=== PATIENT | female | born 1985 | race African-American/Black ===

== ENCOUNTER 2018-06-19 19:19 | Emergency (ER) | payer OTHER ==
[~2018-06-19] VITALS: Ht 157.5 cm; Wt 69.4 kg
[2018-06-19 20:09] LABS: BASO % 0 % (0-3); EOS % 0 % (0-3); HEMATOCRIT 38.5 % (36.0-47.0); HEMOGLOBIN 12.5 g/dL (12.0-15.5); LYMPH # 2.1 x10^3/uL (1.0-4.8); LYMPH % 26 % (24-48); MEAN CORPUSCULAR HEMOGLOBIN 29 pg (25-35); MEAN CORPUSCULAR HGB CONC 33 g/dL (31-37); MEAN CORPUSCULAR VOLUME 89 fL (79-100); MONO # 0.5 x10^3/uL (0.0-1.1); MONO % 7 % (0-9); NEUT # 5.3 x10^3uL (1.8-7.7); NEUT % 67 % (31-73); PLATELET COUNT 179 x10^3/uL (140-400); WHITE BLOOD COUNT 7.9 x10^3/uL (4.0-11.0)
[2018-06-19 20:11] LABS: BILIRUBIN,URINE NEGATIVE (NEG); CLARITY,URINE CLEAR; COLOR,URINE YELLOW; NITRITE,URINE NEGATIVE (NEG); PROTEIN,URINE NEGATIVE (NEG-TRACE); UROBILINOGEN,URINE 0.2 mg/dL (0.2 mg/dL)
[2018-06-19 20:20] LABS: SQUAMOUS EPITHELIAL CELL,UR FEW /LPF
[2018-06-19 20:21] LABS: BACTERIA,URINE 0 /HPF (0-FEW); RBC,URINE 20-40 /HPF (0-2); WBC,URINE 0 /HPF (0-4)
[2018-06-19 20:23] LABS: CALCIUM 8.5 mg/dL (8.5-10.1); CREATININE 0.8 mg/dL (0.6-1.0); GFR 101.2; POTASSIUM 3.8 mmol/L (3.5-5.1)
[2018-06-19 20:30] LABS: ALBUMIN 3.5 g/dL (3.4-5.0); ALBUMIN/GLOBULIN RATIO 1.1 (1.0-1.7); TOTAL BILIRUBIN 0.8 mg/dL (0.2-1.0); TOTAL PROTEIN 6.8 g/dL (6.4-8.2)
--- NOTE | 2018-06-19 20:30 | PHYS DOC ---
Past Medical History Past Medical History: No Pertinent History Past Surgical History: Other Additional Past Surgical Histo: ORAL SX, CYST REMOVED FROM ARM Alcohol Use: None Drug Use: None Adult General Chief Complaint Chief Complaint: VAGINAL BLEEDING HPI HPI Patient is a 32 year old female 3 para 2 currently 6 weeks who presents to the ED today complaining of vaginal bleeding that began yesterday. She states yesterday she was spotting, she states she was seen at [facility], she states she was informed she a the has an early IUP or a possible miscarriage. She states today the bleeding has increased, she states she has used four regular feminine pads since 4 PM today it is 8 pm right now. Denies any abdominal pain, denies any nausea vomiting. Denies any fever. She states she has no [employer] FINANCE [employer]. Review of Systems Review of Systems Constitutional: Denies fever or chills [] Eyes: Denies change in visual acuity, redness, or eye pain [] HENT: Denies nasal congestion or sore throat [] Respiratory: Denies cough or shortness of breath [] Cardiovascular: No additional information not addressed in HPI [] GI: Reports vaginal bleeding in . Denies abdominal pain, nausea, vomiting, bloody stools or diarrhea [] : Denies dysuria or hematuria [] Musculoskeletal: Denies back pain or joint pain [] Integument: Denies rash or skin lesions [] Neurologic: Denies headache, focal weakness or sensory changes [] All other systems were reviewed and found to be within normal limits, except as documented in this note. Allergies Allergies Allergies Coded Allergies Type Severity Reaction Last Updated Verified No Known Drug Allergies 06/19/18 No Physical Exam Physical Exam Constitutional: Well developed, well nourished, no acute distress, non-toxic appearance. [] HENT: Normocephalic, atraumatic, bilateral external ears normal, oropharynx moist, no oral exudates, nose normal. [] Eyes: PERRLA, EOMI, conjunctiva normal, no discharge. [] Neck: Normal range of motion, no tenderness, supple, no stridor. [] Cardiovascular:Heart rate regular rhythm, no murmur [] Lungs & Thorax: Bilateral breath sounds clear to auscultation [] Abdomen: Bowel sounds normal, soft, no tenderness, no masses, no pulsatile masses. [] Pelvic exam-external pelvic is covered with bright red blood. On speculum exam, mild amount of blood clots started coming down from the cervix, there were removed with forceps and the bleeding stopped. No CMT, no adnexal tenderness Skin: Warm, dry, no erythema, no rash. [] Back: No tenderness, no CVA tenderness. [] Extremities: No tenderness, no cyanosis, no clubbing, ROM intact, no edema. [] Neurologic: Alert and oriented X 3, normal motor function, normal sensory function, no focal deficits noted. [] Psychologic: Affect normal, judgement normal, mood normal. [] Current Patient Data Vital Signs Vital Signs Date Time Temp Pulse Resp B/P (MAP) Pulse Ox O2 Delivery O2 Flow Rate FiO2 06/19/18 19:55 98.3 70 18 126/75 (92) 100 Room Air 98.3 Lab Values Laboratory Tests Test 06/19/18 19:33 06/19/18 19:45 POC Urine HCG, Qualitative Hcg positive (Negative) White Blood Count 7.9 x10^3/uL (4.0-11.0) Red Blood Count 4.30 x10^6/uL (3.50-5.40) Hemoglobin 12.5 g/dL (12.0-15.5) Hematocrit 38.5 % (36.0-47.0) Mean Corpuscular Volume 89 fL (79-100) Mean Corpuscular Hemoglobin 29 pg (25-35) Mean Corpuscular Hemoglobin Concent 33 g/dL (31-37) Red Cell Distribution Width 14.0 % (11.5-14.5) Platelet Count 179 x10^3/uL (140-400) Neutrophils (%) (Auto) 67 % (31-73) Lymphocytes (%) (Auto) 26 % (24-48) Monocytes (%) (Auto) 7 % (0-9) Eosinophils (%) (Auto) 0 % (0-3) Basophils (%) (Auto) 0 % (0-3) Neutrophils # (Auto) 5.3 x10^3uL (1.8-7.7) Lymphocytes # (Auto) 2.1 x10^3/uL (1.0-4.8) Monocytes # (Auto) 0.5 x10^3/uL (0.0-1.1) Eosinophils # (Auto) 0.0 x10^3/uL (0.0-0.7) Basophils # (Auto) 0.0 x10^3/uL (0.0-0.2) Urine Collection Type Unknown Urine Color Yellow Urine Clarity Clear Urine pH 5.0 Urine Specific [place] 1.020 Urine Protein Negative mg/dL (NEG-TRACE) Urine Glucose (UA) Negative mg/dL (NEG) Urine Ketones (Stick) Negative mg/dL (NEG) Urine Blood Moderate (NEG) Urine Nitrite Negative (NEG) Urine Bilirubin Negative (NEG) Urine Urobilinogen Dipstick 0.2 mg/dL (0.2 mg/dL) Urine Leukocyte Esterase Negative (NEG) Urine RBC 20-40 /HPF (0-2) Urine WBC 0 /HPF (0-4) Urine Squamous Epithelial Cells Few /LPF Urine Bacteria 0 /HPF (0-FEW) Urine Mucus Marked /LPF Maternal Serum HCG Beta Subunit 52723 mIU/mL (0-5) H Sodium Level 137 mmol/L (136-145) Potassium Level 3.8 mmol/L (3.5-5.1) Chloride Level 102 mmol/L (98-107) Carbon Dioxide Level 29 mmol/L (21-32) Anion Gap 6 (6-14) Blood Urea Nitrogen 10 mg/dL (7-20) Creatinine 0.8 mg/dL (0.6-1.0) Estimated GFR (Cockcroft-Gault) 101.2 BUN/Creatinine Ratio 13 (6-20) Glucose Level 88 mg/dL (70-99) Calcium Level 8.5 mg/dL (8.5-10.1) Total Bilirubin 0.8 mg/dL (0.2-1.0) Aspartate Amino Transferase (AST) 20 U/L (15-37) Alanine Aminotransferase (ALT) 17 U/L (14-59) Alkaline Phosphatase 116 U/L (46-116) Total Protein 6.8 g/dL (6.4-8.2) Albumin 3.5 g/dL (3.4-5.0) Albumin/Globulin Ratio 1.1 (1.0-1.7) Urine Opiates Screen Neg (NEG) Urine Methadone Screen Neg (NEG) Urine Barbiturates Neg (NEG) Urine Phencyclidine Screen Neg (NEG) Urine Amphetamine/Methamphetamine Neg (NEG) Urine Benzodiazepines Screen Neg (NEG) Urine Cocaine Screen Neg (NEG) Urine Cannabinoids Screen Neg (NEG) Ethyl Alcohol Level < 10 mg/dL (0-10) Urine Ethyl Alcohol Neg (NEG) Laboratory Tests 06/19/18 19:45 Laboratory Tests 06/19/18 19:45 EKG EKG [] Radiology/Procedures Radiology/Procedures []PROCEDURE: OB TRANSVAG Obstetrical ultrasound HISTORY: Heavy vaginal bleeding. Findings were suspicious for a failed early on ultrasound at [facility] 12:18 AM today. Endovaginal ultrasound findings: Uterus measures 10.4 x 5.3 x 5.6 cm. The endometrium measures 2.2 cm. There is no evidence of a gestational sac, yolk sac or fetus. No evidence of heart tones.. The maternal right ovary measures 3.1 cm with intact blood supply. Maternal left ovary measures 2.6 cm with intact blood supply. No significant free pelvic fluid is identified. IMPRESSION: The gestational sac and fetus are no longer identified, suspect failed . Correlate with quantitative beta hCG values. The endometrium is diffusely thickened, could be hemorrhage or endometritis. Electronically signed by: Pedro Capellan MD (06/19/2018 8:29 PM) [facility] DICTATED and SIGNED BY: PEDRO CAPELLAN MD DATE: 06/19/182028 Course & Med Decision Making Course & Med Decision Making Pertinent Labs and Imaging studies reviewed. (See chart for details) This is a 32-year-old female patient 3 para 2 currently 6 weeks presenting for vaginal bleeding in that began yesterday. Had an ultrasound done at [facility] which showed a possible failed . Patient's bleeding has increased. On pelvic exam clots were coming into the vaginal vault, I removed them with forceps, bleeding has slowed down tremendously. Patient vitals are normal, CBC with normal WBC, normal hemoglobin and hematocrit, beta-hCG 24,042. Blood group O positive OB ultrasound: The gestational sac and fetus are no longer identified, suspect failed . Correlate with quantitative beta hCG values. The endometrium is diffusely thickened, could be hemorrhage or endometritis. Consulted with -he advised we can discharge patient to home and follow- up with him in the clinic in the course of next week. Patient was discharged to home. Provided return precautions including the need to return to the ED at any point she has worsening pain, uncontrolled bleeding soaking more than 1 feminine pad an hour or any other concerning symptoms. Dragon Disclaimer Dragon Disclaimer This electronic medical record was generated, in whole or in part, using a voice recognition dictation system. Departure Departure Impression: Primary Impression: Miscarriage Disposition: HOME, SELF-CARE Condition: STABLE Referrals: MORA HAILE (PCP) VICTORIANO LOO Jr, MD Call his office on Thursday and set up a follow-up appointment Patient Instructions: Miscarriage, [id number] Additional Instructions: You were evaluated in the emergency room and noted to have a miscarriage. You will be bleeding for the next couple days if you start soaking more than one maxi pad per hour come back to the ED, maintain pelvic rest, no sex. Do not do any strenuous activities. 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 RAUDEL AKHTAR APRN June 19, 2018 20:30
[2018-06-19 20:36] LABS: BARBITURATES NEG (NEG); BENZODIAZEPINES NEG (NEG); CANNABINOIDS NEG (NEG); COCAINE NEG (NEG); METHADONE NEG (NEG); OPIATES NEG (NEG); PHENCYCLIDINE NEG (NEG)
[2018-06-19 20:38] LABS: AMPHETAMINE/METHAMPHETAMINE NEG (NEG)
[2018-06-19 21:40] VITALS: BP 114/70
== END 2018-06-19 21:46 | disposition home or self-care (01) ==
LOC: ER 19:19
DX: O20.0 Threatened abortion (principal); Z3A.01 Less than 8 weeks gestation of pregnancy
CPT/HCPCS: 36415; 76817; 80053; 80307; 81001; 81025; 84702; 85025; 86850; 86900; 86901; 99285; G0480